=== PATIENT | male | born 1975 | race Caucasian/White ===

== ENCOUNTER 2019-08-05 15:08 | Emergency (ER) | payer BC, SELFPAY ==
[2019-08-05 15:09] VITALS: BP 159/117; PULSE 118; RESP 18; TEMP 36.6; O2SAT 97; BMI 29.1
--- NOTE | 2019-08-05 15:39 | ED.DCSUM_ITS ---
History of Present Illness Chief Complaint: Lower Extremity Injury Informant: Patient Onset: Days Current Severity: Mild Narrative: Patient complains of pain involving the left ankle and right great toe consistent with prior exacerbations of gout, he has had gout longstanding occurred a few days ago he is been using colchicine 0.6 mg as prescribed by his physicians it is not really helping it usually does, Nothing specific triggers his gout ever, he has had no trauma no fever no cough no exposure to coronavirus no alcohol use he is eating and drinking well he did not injure his body in any way he just presents because of the persistence of the pain Past Medical History - Allergies and Home Meds Allergies/Adverse Reactions: Allergies diphenhydramine [From Benadryl] Allergy (Verified 08/05/19 15:09) Itching Primary Care Physician: Thanh Wright PA [Primary Care Provider] - Past Medical History: - - Gout Smoking Status: Former smoker Review of Systems General: Denies: Chills, Fever, Sweats Eyes: Denies: Visual changes - bilaterally, Diplopia ENT: Denies: Rhinorrhea, Sore throat Cardiovascular: Denies: Chest pain, Palpitations Respiratory: Denies: Dyspnea, Cough, Dyspnea on exertion Gastrointestinal: Denies: Abdominal pain, Nausea, Vomiting, Diarrhea, Melena, Hematochezia Genitourinary: Denies: Dysuria, Hematuria, Frequency Musculoskeletal: Reports: Extremity Pain. Denies: Back pain Skin: Denies: Rash, Wounds Neurological: Denies: Headache, Weakness, Numbness Physical Exam Vital Signs/Narrative: Vital Signs Temp Pulse Resp BP Pulse Ox 08/05/19 15:09 97.8 F 118 H 18 159/117 H 97 General: Well nourished, Well developed, No Acute Distress Head: Normocephalic, Atraumatic Eyes: Perrl, EOMI ENT: Moist mucous membranes, No rhinorrhea Neck: Supple, Nontender Cardiovascular: Regular rate, Regular rhythm, No murmurs Respiratory: No distress, CTA bilaterally, Chest nontender Abdomen: Soft, Nontender, Nondistended, Normal bowel sounds Back: Nontender, Normal Inspection Extremities: No edema, Tenderness, - - The left lower leg has some very mild tenderness over the lateral malleolus, there is no signs of trauma he is able dorsi and plantar flex, the foot is unremarkable pulses are intact cap refill skin normal calf knee normal, right foot he has tenderness over the right great toe MTP otherwise no other abnormalities to the right lower extremity neurovascular function exam normal as is the right tib-fib knee, the rest of his exam is entirely unremarkable Skin: Normal color, No rash Neurological: Alert, Oriented x3, Cranial nerves II-XII grossly intact, Normal Strength, Normal Sensation Psychological: Normal affect, Normal Mood Diagnostic/Tx/Re-eval - Medical Decision Making Had a long conversation with the patient he assures me this is his gout he has had no trauma he has no history of joint infection or other joint issues, At this time we treated with Kenalog Toradol continue the colchicine Naprosyn [place] as rescue medicine he will follow-up with his outpatient providers in the next few days and return for change in symptoms Home stable Final impression exacerbation of gout ED Disposition - Plan for ED Patient: Instructions: Treating Gout Attacks Prescriptions: Naproxen [Naprosyn] 500 mg PO BID PRN #20 tab Prescription Printed Hydrocodone Bitart/Apap 5-325 [[place] 5MG-325MG] 1 tab PO Q4H PRN PRN 2 Days #10 tab PRN Reason: Pain Prescription Printed Referrals: Thanh Wright PA [Primary Care Provider] -
[2019-08-05 15:59] VITALS: RESP 16
[2019-08-05] MEDS: Triamcinolone Acetonide 40 MG/ML Vial IM (15:59)
[2019-08-05] MEDS: Ketorolac 60 MG/2 ML Vial IM (15:59)
== END 2019-08-05 16:22 | disposition home or self-care (01) ==
LOC: ED 15:57
PROVIDERS: Emergency Provider Emergency Medicine; PCP Physician Assistant
DX: M10.9 Gout, unspecified (principal); Z87.891 Personal history of nicotine dependence
CPT/HCPCS: 96372; 99282

== ENCOUNTER 2019-10-12 23:20 | Emergency (ER) | payer BC, SELFPAY ==
--- NOTE | 2019-10-12 00:02 | RAD_ITS ---
STUDY: X-RAY CHEST REASON FOR EXAM: Male, 44 years old. chest pain, sob, tachycardia, twitching extremities x 1 hr TECHNIQUE: Single frontal view of the chest. COMPARISON: None. FINDINGS: The lungs are clear and expanded. There is no demonstrated pleural abnormality. Normal size heart. Normal mediastinum and almaz. Normal visualized pulmonary arteries. Normal visualized aortic arch and descending thoracic aorta. Normal visualized thoracic spine. Normal visualized ribs, clavicles, and shoulders. Cerclage wires project over the lower cervical spine. EKG leads artifacts. There is no demonstrated abnormality of the visualized soft tissue structures of the upper abdomen. RAD/Chest 1 View (Portable) IMPRESSION: Normal x-ray examination of the chest. Electronically Signed: Walt Montenegro, at 0:28 EDT Tel , Service support ,
[2019-10-12 23:21] VITALS: BP 168/109; PULSE 117; RESP 26; TEMP 36.7; O2SAT 99; BMI 33.3
[2019-10-12 23:27] VITALS: O2SAT 99
--- NOTE | 2019-10-12 23:38 | EKG12_ITS ---
Test Reason : CP Blood Pressure : / mmHG Vent. Rate : 113 BPM Atrial Rate : 113 BPM P-R Int : 116 ms QRS Dur : 094 ms QT Int : 332 ms P-R-T Axes : 026 059 -08 degrees QTc Int : 455 ms Sinus tachycardia Abnormal QRS-T angle, consider primary T wave abnormality Abnormal ECG Confirmed by RAMY TAPIA ([id number]), editorial manager TOBIAS YOU ([id number]) on 10/16/2019 2:06:12 PM Referred By: LIZ Confirmed By:RAMY TAPIA
--- NOTE | 2019-10-12 23:44 | ED.VIS.GEN ---
History of Present Illness Chief Complaint: Shortness of Breath Informant: Patient Onset: Today Context: Sudden Onset Narrative: Patient is a 44-year-old male with a history of gout presenting with sudden onset of anxiety, shortness of breath and chest pressure. Patient states he was laying on his couch all of a sudden he felt that he could not breathe. He felt that his heart was racing his blood pressure was high. This made him breathe faster which worsened the symptoms. He also started having twitching in his hands and feet. At one point his hands contracted up and he could not straighten them out anymore. Is never had any like this before. He states he had impending sense of doom and fell like he was maybe having a panic attack. He denies any history of panic attacks. He notes he has had a lot of stress in his personal life over the past 2 weeks but does not want to go into further details. Patient states his father of ALS. His grandfather had a heart attack at a young age. Patient describes chest discomfort more as a pressure. He denies any associated nausea or vomiting. Denies abdominal pain. Denies any fever chills. Denies any upper respiratory symptoms. He denies any swelling of his legs. Denies any history of DVT or PE. Past Medical History - Allergies and Home Meds Allergies/Adverse Reactions: Allergies diphenhydramine [From Benadryl] Allergy (Verified 08/05/19 15:09) Itching Primary Care Physician: Thanh Wright PA [Primary Care Provider] - Past Medical History: - - gout Surgical History: noncontributory Lives: With Family Smoking Status: Former smoker Review of Systems General: Reports: Sweats. Denies: Chills, Fever Eyes: Denies: Visual changes - bilaterally, Diplopia ENT: Denies: Rhinorrhea, Sore throat Cardiovascular: Reports: Chest pain, Heart racing. Denies: Palpitations Respiratory: Reports: Dyspnea. Denies: Cough, Dyspnea on exertion Gastrointestinal: Denies: Abdominal pain, Nausea, Vomiting, Diarrhea, Melena, Hematochezia Genitourinary: Denies: Dysuria, Hematuria, Frequency Musculoskeletal: Denies: Back pain, Extremity Pain Skin: Denies: Rash, Wounds Neurological: Denies: Headache, Weakness, Numbness Psych: Reports: Anxiety. Denies: Depression Physical Exam Vital Signs/Narrative: Vital Signs Temp Pulse Resp BP Pulse Ox 10/12/19 23:21 98.0 F 117 H 26 H 168/109 H 99 Inital Vital Signs reviewed: Yes General: Well nourished, Well developed, No Acute Distress, - - sweating Head: Normocephalic, Atraumatic Eyes: Perrl, EOMI ENT: Moist mucous membranes, No rhinorrhea Neck: Supple, Nontender Cardiovascular: Regular rhythm, No murmurs, Tachycardia Respiratory: No distress, CTA bilaterally, Chest nontender. Negative for: Diminished, Decreased Air Movement Abdomen: Soft, Nontender, Nondistended, Normal bowel sounds Back: Nontender, Normal Inspection Extremities: Nontender, No edema Skin: Normal color, No rash Neurological: Alert, Oriented x3, Cranial nerves II-XII grossly intact, Normal Strength, Normal Sensation Psychological: Normal affect, Normal Mood, - - anxious Diagnostic/Tx/Re-eval Chest X-Ray - ED: 1 View, Read by ED Physician, Read by Radiologist, No Acute Disease Clinical Impression(s) from Imaging Studies Chest X-Ray 10/12/19 00:02 IMPRESSION: Normal x-ray examination of the chest. Electronically Signed: Walt Montenegro, at 0:28 EDT Tel , Service support , Laboratory Data 10/12/19 10/12/19 10/12/19 23:25 23:25 23:25 WBC 8.6 RBC 5.01 Hgb 14.9 Hct 42.5 MCV 84.8 MCH 29.7 MCHC 35.1 RDW Std Deviation 35.6 RDW Coeff of Agueda 11.7 Plt Count 282 MPV 10.5 Immature Gran % (Auto) 0.600 Neut % (Auto) 57.5 Lymph % (Auto) 33.9 Castro % (Auto) 5.8 Eos % (Auto) 1.9 Baso % (Auto) 0.3 Absolute Neuts (auto) 5.0 Absolute Lymphs (auto) 2.92 Nucleated RBC % 0 PT 12.8 INR 1.0 D-Dimer Quant (PE/DVT) <= 0.27 Sodium 139 Potassium 3.3 L Chloride 105 Carbon Dioxide 23.0 Anion Gap 11 BUN 11 Creatinine 1.02 Estim Creat Clear Calc 99.32 Est GFR (MDRD) Af Amer 101 Est GFR (MDRD) Non-Af 83 BUN/Creatinine Ratio 10.8 Glucose 145 H Calcium 9.5 Troponin I < 0.015 TSH 2.72 10/13/19 02:27 WBC RBC Hgb Hct MCV MCH MCHC RDW Std Deviation RDW Coeff of Agueda Plt Count MPV Immature Gran % (Auto) Neut % (Auto) Lymph % (Auto) Castro % (Auto) Eos % (Auto) Baso % (Auto) Absolute Neuts (auto) Absolute Lymphs (auto) Nucleated RBC % PT INR D-Dimer Quant (PE/DVT) Sodium Potassium Chloride Carbon Dioxide Anion Gap BUN Creatinine Estim Creat Clear Calc Est GFR (MDRD) Af Amer Est GFR (MDRD) Non-Af BUN/Creatinine Ratio Glucose Calcium Troponin I < 0.015 TSH - Rhythm Strip Rhythm Strip: Sinus Tach Rate: 113 Ectopy: None - EKG Initial EKG Interpretation: Sinus Tachycardia, - - Tachycardia at a rate of 113 Normal axis Normal intervals Nonspecific T wave inversion in lead III and aVF Prior: No Prior - Medical Decision Making Evaluated for sudden onset of chest tightness, palpitations and feeling like he could not breathe. He had overwhelming anxiety and sense of doom associated with this. His presentation is really consistent with a panic attack but does not have a history of them. In addition patient states he has been more stressed out lately. He does feel safe at home. Patient is given a dose of Ativan in the emergency room. This patient is tachycardic and cannot rule him out for PE by PE RC. He is low risk however by Wells criteria. D-dimer is ordered which is negative. Cardiac work-up including troponin EKG are not consistent with ACS. Patient does have nonspecific T wave inversions in 3 and aVF but I do not have a prior EKG to compare to. His troponin is negative. Did perform a delta troponin which is also negative. Patient is low risk for heart score and is stable for outpatient follow-up in my opinion. He discharged to follow-up with his primary care doctor. He will be sent home with a prescription for Vistaril in case he has another episode. He is counseled on return precautions. Patient is counseled on signs and symptoms requiring return to the emergency room. Patient verbalizes agreement and understand this plan. Patient discharged home in stable and improved condition. ED Disposition - Plan for ED Patient: Disposition: Home or Assisted Living Diagnosis: Atypical chest pain, Panic attack due to exceptional stress Instructions: ED Chest Pain [facility] Ch, ED Stress React Prescriptions: Hydroxyzine HCl 25 mg PO Q6H PRN PRN #15 tab PRN Reason: Anxiety Transmission Status: Pending to [facility]30 Referrals: Thanh Wright PA [Primary Care Provider] - Additional Instructions: Cardiac work-up was largely normal today. I think you are safe to go home but I would like you to follow-up with your primary care doctor for further evaluation. I suspect you had a panic attack tonlaron
[2019-10-12] MEDS: 0.9% Normal Saline 1,000 ML 1000 ML IV (23:45)
[2019-10-12] MEDS: LORazepam 2 MG/ML Syringe 0.5 MG IV (23:46)
[2019-10-12 23:48] VITALS: BP 161/99; PULSE 111; RESP 20; O2SAT 100; O2SAT 99
[2019-10-12 23:51] LABS: Absolute Lymphocyte Count 2.92 X10^3/uL (0.83-4.51); Basophil# 0.03 X10^3/uL; Basophil% 0.3 % (0-1); Eosinophil# 0.16 X10^3/uL; Eosinophils% 1.9 % (0-5); Hematocrit 42.5 % (40-54); Hemoglobin 14.9 g/dL (13.0-16.5); Lymphocyte # 2.92 X10^3/ul (4.0); Lymphocyte % 33.9 % (19-41); Mean Corp Hgb Conc 35.1 g/dL (32-36); Mean Corpuscular Hgb 29.7 pg (27.0-32.0); Mean Corpuscular Volume 84.8 fL (80-94); Mean Platelet Vol. 10.5 fl (6.2-12.0); Monocyte% 5.8 % (0-10); NRBC Flagged by Analyzer 0 % (0-5); Neutrophil # 4.95 X10^3/uL (2.7-7.7); Neutrophil % 57.5 % (47-70); Platelet Count 282 K/mm3 (150-450); RBC Distribution Width CV 11.7 % (11.6-14.6); RBC Distribution Width SD 35.6 fl (35.1-43.9); Red Blood Count 5.01 M/mm3 (4.6-6.2); White Blood Count 8.6 K/mm3 (4.4-11.0)
[2019-10-12 23:56] LABS: Prothrombin Time (Protime)PT. 12.8 SECONDS (11.7-14.9)
[2019-10-12 23:59] LABS: D-Dimer Quantitative (DVT/PE) <= 0.27 FEU/ug/m (0.27-0.49)
[2019-10-13 00:12] LABS: Anion Gap 11 (5-15); BUN 11 mg/dL (7-18); BUN/Creat Ratio 10.8 RATIO (10-20); Calcium,Total 9.5 mg/dL (8.5-10.1); Chloride 105 mmol/L (98-107); Creatinine, Serum 1.02 mg/dL (0.70-1.30); EST Glomerular Filtration Rate 83 mL/min (>60); Est Glom Filt Rate - Afr Amer 101 mL/min (>60); Estimated Creatinine Clearance 99.32 ml/min; Glucose 145 mg/dL (74-106); Potassium 3.3 mmol/L (3.5-5.1); Sodium Level 139 mmol/L (136-145); Thyroid Stim Hormone (TSH) 2.72 uIU/mL (0.358-3.74)
[2019-10-13 01:51] VITALS: BP 133/87; PULSE 93; RESP 31; O2SAT 95
[2019-10-13 03:37] VITALS: BP 156/90; PULSE 91; RESP 18; O2SAT 96
== END 2019-10-13 03:38 | disposition home or self-care (01) ==
PROVIDERS: Emergency Provider Emergency Medicine; PCP Physician Assistant
DX: R07.89 Other chest pain (principal); F41.0 Panic disorder [episodic paroxysmal anxiety]; Z63.4 Disappearance and death of family member; M10.9 Gout, unspecified; Z79.82 Long term (current) use of aspirin; Z87.891 Personal history of nicotine dependence
CPT/HCPCS: 71045; 80048; 84443; 84484; 85025; 85379; 85610; 93005; 96361; 96374; 99285; J7030; A4216